=== PATIENT | female | born 1970 | race Caucasian/White ===

== ENCOUNTER 2017-02-12 22:36 | Observation (INO) | payer OTHER ==
[~2017-02-12] VITALS: Ht 162.6 cm; Wt 57.0 kg
--- NOTE | ~2017-02-12 | HP ---
Unit #: [id number] #: [id number] Patient: CLAUDIA MCNULTY [id number] [address] [address] [id number] I MR#: [id number] NAME: CLAUDIA MCNULTY ROOM: 469 Age: 46 Sex: F Admission Date: 02/13/2017 : 1970 Attending Physician: Rayshawn Sherman M.D. Primary Care Physician: Ildefonso Wright M.D. HISTORY AND PHYSICAL CHIEF COMPLAINT Nausea and vomiting. HISTORY OF PRESENT ILLNESS Ms. Claudia Mcnulty is a 46-year-old white female with a history of cyclic vomiting syndrome but has not had any issues in the last 2 years. She has had multiple family members who have been sick from stomach flu, and she began having similar symptoms but much more severe and was vomiting every 2-3 minutes, unable to keep anything down for several days. Came into the emergency room and was noted to have some leukocytosis with a white blood cell count of 3.4 and an elevated lipase of 174 and low potassium of 3.1. CT scan was negative. She was started on supportive care, and all of those lab abnormalities have improved, but the patient is continuing to have vomiting and has, in fact, vomited 4 times in the last 12 hours despite regular IV antiemetics at this time. She is being placed in 23-hour observation for continued supportive care for intractable vomiting. HOME MEDICATIONS No current medications. PAST MEDICAL HISTORY Cyclic vomiting syndrome. SOCIAL HISTORY She uses marijuana regularly. Denies any other drug use. FAMILY HISTORY Noncontributory. ALLERGIES No known drug allergies. REVIEW OF SYSTEMS A full 10-point review of systems is done and is negative with the exceptions noted above in the HPI. PHYSICAL EXAMINATION VITAL SIGNS: Temperature is 99 Fahrenheit, pulse is 60, respiratory rate is 16, and blood pressure is 133/63. GENERAL: The patient is alert and oriented. Appears acutely ill but no acute respiratory distress. CARDIOVASCULAR: Regular rate and rhythm. No murmurs. LUNGS: Clear to auscultation bilaterally. No rales, rhonchi or wheezes. ABDOMEN: Soft, nontender, nondistended. No mass or hepatosplenomegaly. Unit #: [id number] #: [id number] Patient: CLAUDIA MCNULTY EXTREMITIES: No clubbing, cyanosis or edema. SKIN: No rashes or lesions. Skin is warm and dry throughout. MUSCULOSKELETAL: No joint effusions. No muscle or joint tenderness. HEAD: Normocephalic, atraumatic. EYES: Sclerae are white. Conjunctivae are normally infused. NOSE: External nares are normal. There is no bleeding or drainage. MOUTH: Mucous membranes are moist. There are no oropharyngeal lesions. NECK: Supple. No cervical lymphadenopathy. Trachea is midline. NEUROLOGIC: Strength is 5/5 in all 4 extremities. She has no focal neurologic deficits. DIAGNOSTIC STUDIES IMAGING: CT of the abdomen and pelvis showed no changes compared to 2015. No acute issues. LABORATORY: Most recent amylase and lipase are negative. Recent magnesium is 1.6, potassium 4, and glucose is 119 on D5 IV fluids. CBC shows a white blood cell count of 10.3 with a normal hemoglobin and platelets. Beta HCG is negative. ASSESSMENT AND PLAN 1. Intractable vomiting secondary to viral gastroenteritis. Will continue supportive care with IV fluids and IV antiemetics. Will recheck electrolytes tomorrow morning. Will determine clinically tomorrow whether the patient will continue to need hospitalization or will be able to go home with antiemetics at that time. Will allow clear liquid diet, if the patient wishes, later today. 2. DVT prophylaxis. Will use Lovenox subcu daily. Dictated by Rayshawn Sherman M.D. RAFAEL/jerman TD: 02/13/2017 13:13 JOB #: [id number] HISTORY AND PHYSICAL Page 1 of 1 X Rayshawn Sherman MD X HISTORY AND PHYSICAL
--- NOTE | ~2017-02-12 | DS ---
Unit #: [id number] #: [id number] Patient: CLAUDIA BERNARDO [id number] [address] [address] [id number] I MR#: [id number] NAME: CLAUDIA BERNARDO. ROOM: 469 Age: 46 Sex: F Admission Date: 02/13/2017 : 1970 Discharge Date: 02/14/2017 Attending Physician: Rayshawn Sherman M.D. Primary Care Physician: Ildefonso Wright M.D. DISCHARGE SUMMARY PRIMARY DIAGNOSIS Intractable vomiting. SECONDARY DIAGNOSIS Viral gastroenteritis. HOSPITAL COURSE The patient was placed in observation status and treated with IV fluids, Phenergan, Reglan, and Zofran as needed. Twenty-four hours after her initially being placed on observation status, the patient was tolerating clear liquid diet although she did not like the taste of the clear liquid options here in the hospital. I have advised her to stay on a clear liquid diet for another two meals and then advance from there, and provided her with p.o. and IV Phenergan to be used at home. The patient has not had any vomiting for the last twelve hours prior to discharge. DISCHARGE DISPOSITION To home. DISCHARGE STATUS Stable. DISCHARGE ACTIVITY Ad constance. DISCHARGE DIET Clear liquids for the next two meals and then advance as tolerated with the second step being broth, apple sauce, or pudding. FOLLOWUP Follow up is with her primary care physician in one-to-two weeks. DISCHARGE MEDICATIONS Phenergan 25 mg one tablet p.o. q.6h p.r.n. nausea and Phenergan suppository 25 mg one suppository per rectum q.6h p.r.n. for vomiting where she is unable to hold down thee tablets. Dictated by... Rayshawn Sherman M.D. Unit #: [id number] #: [id number] Patient: CLAUDIA BERNARDO RAFAEL/chary TD: 02/15/2017 07:24 JOB #: [id number] DISCHARGE SUMMARY Page 1 of 1 X Rayshawn Sherman MD X DISCHARGE SUMMARY
--- NOTE | ~2017-02-12 | CT2 ---
[facility] A Service of [facility] RADIOLOGY TEXT RESULTS PATIENT: CLAUDIA BERNARDO LOCATION: [place] [address] : [birth year] UNIT #: [id number] AGE: [address]: Rayshawn Sherman MD SEX: F ORDER DR: [id number] [place] [id number] I MR#: [id number] Acc #: [id number] NAME: CLAUDIA BENRARDO. : 1970 SEX: F STUDY DATE/TIME: 02/13/2017 1:12 UNIT: SEDOF ROOM: [id number] STUDY DESCRIPTION: CT Abd and Pelv W Cont Attending Physician: Lianna Kidd M.D. Ordering Physician: Loretta Bueno M.D. Primary Care Physician: Ildefonso Wright M.D. MEDICAL IMAGING REPORT This report is preliminary unless electronic signature is present. EXAM CT abdomen and pelvis with contrast, 02/13/2017. HISTORY 46-year-old female in the ED complaining of a 2-day history of nausea, vomiting, and weakness. She reports a history of cyclic vomiting syndrome. TECHNIQUE CT examination of the abdomen and pelvis was performed with IV contrast. GI contrast was not ordered. This CT exam was performed with one or more of the following radiation dose reduction techniques: automatic exposure control, adjustment of mA and/or kV according to patient size, and iterative reconstruction. COMPARISON CT abdomen/pelvis, 02/07/2015 and 05/20/2013. FINDINGS ABDOMEN FINDINGS: Several small benign cysts within the liver and spleen, unchanged. Liver, pancreas, spleen, kidneys, and adrenal glands are otherwise normal. No gallbladder distension or bile duct dilatation. The small bowel and colon are normal in caliber and appearance, as imaged. The appendix is normal. Normal-caliber abdominal aorta. PELVIS FINDINGS: Uterus, ovaries, urinary bladder and rectum are within normal limits. No inguinal hernia or abdominal wall hernia. Limited lung base images show no active disease in the lower chest. IMPRESSION 1. Negative CT examination of the abdomen and pelvis. [facility] A Service of [facility] RADIOLOGY TEXT RESULTS PATIENT: CLAUDIA BERNARDO LOCATION: [facility] [id number] : [birth year] UNIT #: [id number] AGE: [address]: Rayshawn Sherman MD SEX: F ORDER DR: 2. No change since 02/07/2015 and 05/20/2013. Dictated by... Leon Bermudez M.D. THIS IS AN ELECTRONICALLY VERIFIED REPORT Leon Bermudez M.D. at 02/13/2017 8:56 PM GABRIELW/kaylan TD: 02/13/2017 09:26 JOB #: [id number] MEDICAL IMAGING REPORT Page 1 of 1
[~2017-02-12 22:36] MED LIST: ACETAMINOPHEN PO; AMITRIPTYLINE H25 MG PO; AUGMENTIN PO; BACTRIM DS TABL1 TA1 PO; COMBIVENT INH14.7 G1; COMBIVENT RESPIMAT; COMPAZINE10 M3 PO; DULERA 100 MCG/13 GM; K-DUR20 ME1; K-DUR20 ME1 PO; K-DUR20 ME2 PO; MACROBID100 MG PO; NO MEDICATIONS; PANTOPRAZOLE SO40 MG PO; PHENERGAN PO; PHENERGAN SUPP25 M1 PR; PHENERGAN SUPP25 MG PR; PHENERGAN VC W120 M1 PO; PHENERGAN12.5 M2 RC; PHENERGAN25 M1 PO; PREVACID PO; PROTONIX; PROTONIX PO; PROZAC10 M1; REGLAN10 MG PO; ROBITUSSIN A-C S5 ML PO; THORAZINE25 MG PO; TOPIRAMATE15 MG; TRAZODONE HCL100 MG PO; ZITHROMAX PO; ZOFRAN; ZOFRAN ODT4 MG DOB; ZOFRAN ODT4 MG PO; ZOFRAN PO; [UNRECOGNIZED DRUG - REMARK] PO
[2017-02-12 23:18] LABS: BASOPHIL# 0.1 X10e3 (0-0.3); BASOPHIL% 0.8 % (0-2.5); DIFF IND NO; EOSINOPHIL% 0.1 % (0.0-7.0); HEMATOCRIT 41.9 % (35.0-45.0); HEMOGLOBIN 14.1 gm/dL (12.0-16.0); LYMPHOCYTE# 2.9 X10e3 (1.0-3.5); MEAN CORPUSCULAR HEMOGLOBIN 30.6 PG (28-34); MEAN CORPUSCULAR HGB CONC 33.6 g/dL (30-36); MEAN PLATELET VOLUME 8.6 FL (6.5-11.5); MONOCYTE# 1.1 X10e3 (0-1.0); MONOCYTE% 8.5 % (3.0-12.0); NEUTROPHIL# 9.2 X10e3 (1.5-7.1); NEUTROPHIL% 68.6 % (40-75); PLATELET COUNT 287 X10e3 (140-420); RED CELL DISTRIBUTION WIDTH 13.7 % (11.0-15.5); WHITE BLOOD COUNT 13.4 X10e3 (4.0-10.5)
[2017-02-12 23:36] LABS: ALBUMIN SERUM 4.6 g/dL (3.5-5.0); BILIRUBIN, DIRECT 0.1 mg/dL (0.0-0.2); BILIRUBIN,INDIRECT 0.6 mg/dL (0.0-0.9); BILIRUBIN,TOTAL 0.7 mg/dL (0.2-2.0); BUN/CREATININE RATIO 18.88; CALCIUM SERUM 9.3 mg/dL (8.4-10.2); CREATININE SERUM 0.9 mg/dL (0.6-1.4); GLOM FILT RATE Estimated 75.7 mL/min (>60); POTASSIUM 3.1 mmol/L (3.5-5.1); PROTEIN TOTAL SERUM 7.8 g/dL (6.0-8.3)
[2017-02-13 07:51] LABS: BASOPHIL% 0.4 % (0-2.5); HEMATOCRIT 37.3 % (35.0-45.0); HEMOGLOBIN 12.6 gm/dL (12.0-16.0); LYMPHOCYTE# 1.4 X10e3 (1.0-3.5); LYMPHOCYTE% 13.2 % (17.0-45.0); MEAN CELL VOLUME 91.3 FL (83-96); MEAN CORPUSCULAR HEMOGLOBIN 30.8 PG (28-34); MEAN CORPUSCULAR HGB CONC 33.8 g/dL (30-36); MEAN PLATELET VOLUME 8.4 FL (6.5-11.5); MONOCYTE# 0.6 X10e3 (0-1.0); MONOCYTE% 6.2 % (3.0-12.0); NEUTROPHIL# 8.3 X10e3 (1.5-7.1); NEUTROPHIL% 80.2 % (40-75); PLATELET COUNT 242 X10e3 (140-420); RED BLOOD COUNT 4.08 X10e (3.90-5.30); RED CELL DISTRIBUTION WIDTH 13.5 % (11.0-15.5); WHITE BLOOD COUNT 10.3 X10e3 (4.0-10.5)
[2017-02-13 07:59] LABS: DIFF IND NO
[2017-02-13 08:13] LABS: BUN/CREATININE RATIO 12.85; CALCIUM SERUM 8.4 mg/dL (8.4-10.2); CREATININE SERUM 0.7 mg/dL (0.6-1.4); GLOM FILT RATE Estimated 102.5 mL/min (>60); MAGNESIUM 1.6 mg/dL (1.6-3.0)
[2017-02-13] MEDS ORDERED: NO MEDICATIONS (09:36)
[2017-02-13 11:54] LABS: URINE SOURCE CLEAN CATCH
[2017-02-13 12:05] LABS: URINE APPEARANCE CLEAR; URINE BILIRUBIN NEG (NEG); URINE BLOOD 2+ (NEG); URINE COLOR YELLOW; URINE GLUCOSE 100 MG/DL (NEG); URINE KETONE 2+ (NEG); URINE LEUKOCYTE ESTERASE NEG (NEG); URINE NITRATE NEG (NEG); URINE PH 7.5 (5-8); URINE PROTEIN TRACE (NEG); URINE SPECIFIC GRAVITY 1.053 (1.003-1.035); URINE UROBILINOGEN 0.2 MG/DL (NEG)
[2017-02-13 12:07] LABS: U HYALINE CASTS AUWI 0-2 /[LPF]; URINE BACTERIA AUWI NEG (NEGATIVE); URINE SQUAMOUS EPITHELIAL CELL OCC /[HPF]
[2017-02-13 12:09] LABS: CULTURE INDICATED? NO
[2017-02-14 03:55] LABS: CALCIUM SERUM 8.7 mg/dL (8.4-10.2); CARBON DIOXIDE 24 mmol/L (22-31); CHLORIDE 105 mmol/L (100-111); CREATININE SERUM 0.7 mg/dL (0.6-1.4); GLOM FILT RATE Estimated 102.5 mL/min (>60); GLUCOSE FASTING 112 mg/dL (70-110); POTASSIUM 3.9 mmol/L (3.5-5.1); SODIUM 135 mmol/L (135-145)
[2017-02-14 03:56] LABS: BLOOD UREA NITROGEN <5 mg/dL (9-23); BUN/CREATININE RATIO 7.14
[2017-02-14] MEDS ORDERED: PHENERGAN25 M1 PO (13:54)
[2017-02-14] MEDS ORDERED: PHENERGAN SUPP25 MG PR (13:55)
== END 2017-02-14 14:39 | disposition home or self-care (01) | DRG 392 ==
LOC: SED 22:36 → SEDOF 02-13 03:45 → SED 02-13 03:51 → C4C 02-13 03:51 → SEDOF 02-13 05:44 → C4C 02-13 05:44
PROVIDERS: Internal Medicine; Student in an Organized Health Care Education/Training Program
DX: A08.4 Viral intestinal infection, unspecified (principal)
CPT/HCPCS: 36415; 74177; 80048; 80076; 81003; 82150; 83690; 83735; 84703; 85025; 96361; 96372; 96374; 96375; 96376; 99285; C9113; G0378; J1200; J1650; J2405; J2550; J2765; Q9967